=== PATIENT | male | born 1995 | race Two or more races ===

== ENCOUNTER 2017-11-08 12:04 | Emergency (ER) | payer OTHER ==
[~2017-11-08] VITALS: Ht 175.3 cm; Wt 54.4 kg
[2017-11-08 12:09] VITALS: BP 119/51
== END 2017-11-08 12:26 ==
LOC: ER 12:06
DX: Z02.89 Encounter for other administrative examinations (principal); F41.9 Anxiety disorder, unspecified; V49.49XA Driver injured in collision with other motor vehicles in traffic accident, initial encounter; Y93.89 Activity, other specified; Y92.413 State road as the place of occurrence of the external cause; Y99.8 Other external cause status
CPT/HCPCS: A4606; Z7610